=== PATIENT | male | born 1955 | race Caucasian/White ===

== ENCOUNTER → 2018-06-24 | Outpatient (CLI) | payer BC, OTHER ==
[~2018-06-24] MED LIST: ASPIR-LOW81 MG PO; ATENOLOL 50MG T50 MG PO; COREG6.25 MG PO; EFFIENT10 MG PO; GLUCOPHAGE1000 MG PO; LIPITOR 20 MG T20 M1 PO; PRINIVIL5 MG PO; VICTOZA0.6 MG/0.1 SUBQ; ZANTAC 150MG T150 MG PO
== END ==
LOC: NUC 07:34
DX: I25.10 Atherosclerotic heart disease of native coronary artery without angina pectoris (principal); I25.2 Old myocardial infarction; E78.5 Hyperlipidemia, unspecified; E11.9 Type 2 diabetes mellitus without complications; Z98.61 Coronary angioplasty status; Z79.84 Long term (current) use of oral hypoglycemic drugs; Z88.8 Allergy status to other drugs, medicaments and biological substances